=== PATIENT | male | born 1975 | race Caucasian/White ===

== ENCOUNTER 2018-03-19 15:13 | Emergency (ER) | payer BC, OTHER ==
[2018-03-19 15:41] VITALS: BP 143/91
--- NOTE | 2018-03-19 15:42 | UC ---
UC General HPI - HPI Summary HPI Summary: on 03/12/18 pt noted L shoulder pain during training and push ups while at work. SELF TX WITH NSAID. - History of Current Complaint Stated Complaint: WC-LEFT SHOULDER INJURY Time Seen by Provider: 03/19/18 15:35 Hx Obtained From: Patient Timing: Constant Aggravating: movement Alleviating: partial by advil Associated Signs & Symptoms: Negative: Weakness - Allergy/Home Medications Allergies/Adverse Reactions: Allergies Allergy/AdvReac Type Severity Reaction Status Date / Time No Known Allergies Allergy Verified 03/19/18 15:41 PMH/Surg Hx/FS Hx/Imm Hx Previously Healthy: Yes - Surgical History Surgical History: Yes Surgery Procedure, Year, and Place: VASECTOMY - Family History Known Family History: Positive: None - Social History Occupation: Employed Full-time Substance Use Type: None - Immunization History Vaccination Up to Date: Yes Review of Systems Constitutional: Negative Skin: Negative Eyes: Negative ENT: Negative Respiratory: Negative Cardiovascular: Negative Gastrointestinal: Negative Genitourinary: Negative Motor: Negative Neurovascular: Negative Musculoskeletal: Negative Neurological: Negative Psychological: Negative Is Patient Immunocompromised?: No All Other Systems Reviewed And Are Negative: Yes Physical Exam Triage Information Reviewed: Yes Appearance: Well-Appearing Vital Signs Reviewed: Yes Eyes: Positive: Conjunctiva Clear ENT: Positive: Normal ENT inspection Neck: Positive: Supple, Nontender, No Lymphadenopathy, Other: - c-spine non tender. trapezius mm non tender. Respiratory: Positive: Lungs clear, Normal breath sounds Cardiovascular: Positive: RRR, No Murmur Abdomen Description: Positive: Nontender, No Organomegaly, Soft Bowel Sounds: Positive: Present Musculoskeletal: Positive: Other: - LUE: no deformity, swelling or discoloration. Tender over anterior shoulder only. Active ROM in shoulder intact but pain in all directions, worst with flexion and extension. Able to resist with abduction but c/o pain. rest of LUE unremarkable with full s/v/m function. Neurological: Positive: Alert Psychological: Positive: Age Appropriate Behavior Skin Exam: Normal Diagnostics - Radiology No standard instances Radiology Interpretation Completed By: Radiologist - L SHOULDER=IMPRESSION: MILD OSTEOARTHRITIC CHANGE. Course/Dx - Course Course Of Treatment: NO FX OR DISLOCTION ON XRAY. POSSIBLE ROTATOR CUFF INJURY. WILL LIMIT USE AND REFER TO ORTHOPEDICS. REPEAT BP 135/87 - Differential Dx - Multi-Symptom Provider Diagnoses: ACUTE LEFT SHOULDER PAIN. Discharge - Sign-Out/Discharge Documenting (check all that apply): Patient Departure All imaging exams completed and their final reports reviewed: Yes - Discharge Plan Condition: Stable Disposition: HOME Patient Education Materials: Shoulder Pain (ED) Forms: *Work Release Referrals: Evens Liu MD [Medical Doctor] - As Soon As Possible Additional Instructions: DIAGNOSIS: ACUTE LEFT SHOULDER PAIN. POSSIBLE ROTATOR CUFF INJURY. - Billing Disposition and Condition Condition: STABLE Disposition: Home
== END 2018-03-19 16:55 | disposition home or self-care (01) ==
LOC: UCCORT 15:13
DX: M25.512 Pain in left shoulder (principal)
CPT/HCPCS: 99201; G0463

== ENCOUNTER 2019-03-11 13:37 | Emergency (ER) | payer BC, OTHER ==
[2019-03-11 14:41] VITALS: BP 134/78
--- NOTE | 2019-03-11 15:56 | UC ---
Bite Injury/Animal HPI - HPI Summary HPI Summary: 43-year-old male comes with a chief complaint of tick bite. Yesterday he noticed a tick on the left side of his chest which she removed with tweezers. Today he notices a rash at the site. Fevers or chills feels well otherwise. - History of Current Complaint Chief Complaint: [employer] Stated Complaint: TICK BITE Time Seen by Provider: 03/11/19 15:46 Pain Intensity: 0 - Allergies/Home Medications Allergies/Adverse Reactions: Allergies Allergy/AdvReac Type Severity Reaction Status Date / Time No Known Allergies Allergy Verified 03/11/19 14:41 PMH/Surg Hx/FS Hx/Imm Hx Previously Healthy: Yes - Surgical History Surgical History: Yes Surgery Procedure, Year, and Place: VASECTOMY - Family History Known Family History: Positive: None - Social History Alcohol Use: Occasionally Substance Use Type: None Smoking Status (MU): Former Smoker - Immunization History Vaccination Up to Date: Yes Review of Systems All Other Systems Reviewed And Are Negative: Yes Constitutional: Positive: Negative Skin: Positive: Other - SEE HPI Eyes: Positive: Negative ENT: Positive: Negative Respiratory: Positive: Negative Cardiovascular: Positive: Negative Gastrointestinal: Positive: Negative Motor: Positive: Negative Neurovascular: Positive: Negative Musculoskeletal: Positive: Negative Neurological: Positive: Negative Psychological: Positive: Negative Is Patient Immunocompromised?: No Physical Exam Triage Information Reviewed: Yes Appearance: Well-Appearing, No Pain Distress, Well-Nourished Vital Signs: Initial Vital Signs Temp 98.6 F 03/11/19 14:37 Pulse 57 03/11/19 14:37 Resp 16 03/11/19 14:37 BP 134/78 03/11/19 14:37 Pulse Ox 100 03/11/19 14:37 Vital Signs Reviewed: Yes Eye Exam: Normal Eyes: Positive: Conjunctiva Clear Neck: Positive: Supple Respiratory: Positive: No respiratory distress Musculoskeletal: Positive: Strength Intact, ROM Intact Neurological: Positive: Alert Psychological: Positive: Age Appropriate Behavior Skin: Positive: Other - There is a 1.5 cm diameter erythematous area rim with erythema on the left chest. Bite Injury Course/Dx - Course Course Of Treatment: At this time it's difficult to say whether or not there is a bull's-eye rash. Discussed with the patient treatment for a tick bite without symptoms of Lyme disease and an tick bite with Lyme disease. Plan at this time sick take 200 mg of doxycycline. If the area of erythema resolves completely then no further need for treatment. If however the erythema spreads forms a bull's-eye rash is any signs of Lyme disease he'll take doxycycline 100 mg by mouth twice a day 14 days. Patient to reevaluate if worse or any questions or concerns. - Differential Dx/Diagnosis Provider Diagnosis: Tick bite of chest wall Discharge ED - Sign-Out/Discharge Documenting (check all that apply): Patient Departure All imaging exams completed and their final reports reviewed: No Studies - Discharge Plan Condition: Stable Disposition: HOME Prescriptions: DOXYcycline CAP(*) [DOXYcycline 100MG CAP(*)] 100 mg PO BID #30 cap Patient Education Materials: Lyme Disease (ED), Tick Bite (ED) Referrals: [facility] [Outside] Additional Instructions: FOLLOW UP WITH YOUR DOCTOR IF NOT COMPLETELY IMPROVED. The treatment for a tick bite without a bull's-eye rash or Lyme disease symptoms is doxycycline 200 mg as a single dose. The treatment for a tick bite with signs of Lyme disease; bull's-eye rash, headache, body aches and joint aches, fever is doxycycline 100 mg by mouth twice a day 14 days. GET REEVALUATED SOONER IF NOT IMPROVING OR YOUR CONDITION WORSENS OR ANY QUESTIONS OR CONCERNS. - Billing Disposition and Condition Condition: STABLE Disposition: Home
== END 2019-03-11 16:01 | disposition home or self-care (01) ==
LOC: UCCORT 13:37
DX: S20.362A Insect bite (nonvenomous) of left front wall of thorax, initial encounter (principal); W57.XXXA Bitten or stung by nonvenomous insect and other nonvenomous arthropods, initial encounter; Y92.9 Unspecified place or not applicable; Z87.891 Personal history of nicotine dependence
CPT/HCPCS: 99212; G0463